=== PATIENT | female | born 1990 | race Caucasian/White ===

== ENCOUNTER → 2016-08-16 | Outpatient (CLI) | payer OTHER ==
[2016-08-16 09:45] LABS: ALBUMIN 3.8 GM/DL (3.2-5.2); ALBUMIN/GLOBULIN RATIO 1.58 (1.00-1.93); ALKALINE PHOSPHATASE 47 U/L (45-117); ALT/SGPT 12 U/L (12-78); ANION GAP 8 MEQ/L (8-16); AST/SGOT 11 U/L (15-37); BILIRUBIN,TOTAL 0.5 MG/DL (0.2-1.0); BLOOD UREA NITROGEN 15 MG/DL (7-18); CALCIUM LEVEL 8.2 MG/DL (8.5-10.1); CARBON DIOXIDE LEVEL 28 MEQ/L (21-32); CHLORIDE LEVEL 106 MEQ/L (98-107); CHOLESTEROL LEVEL 131 MG/DL (<200); CREATININE FOR GFR 0.74 MG/DL (0.55-1.02); GLOMERULAR FILTRATION RATE > 60.0 (>60); GLUCOSE, FASTING 82 MG/DL (70-105); SODIUM LEVEL 142 MEQ/L (136-145); TOTAL PROTEIN 6.2 GM/DL (6.4-8.2); TRIGLYCERIDES LEVEL 52 MG/DL (<150)
== END ==
LOC: M WUC 08:03
PROVIDERS: ATTEND Nurse Practitioner Family
DX: Z13.89 Encounter for screening for other disorder (principal); F41.8 Other specified anxiety disorders

== ENCOUNTER → 2016-09-14 | Outpatient (CLI) | payer OTHER ==
--- NOTE | 2016-09-14 16:05 | REP ---
Clinical: Pelvic pain. IUD placement. Technique: Transabdominal pelvic ultrasound followed by transvaginal examination for better evaluation of the endometrium and adnexa with color Doppler evaluation of the ovaries. Findings: Bladder is unremarkable and measures 9.3 x 8.8 x 6.0 cm . Normal anteverted uterus measures 9.2 x 3.3 x 4.5 cm . The endometrial complex measures 6.5 mm thickness. No discrete uterine or endometrial abnormalities are appreciated. IUD identified in central satisfactory position. Bilateral ovaries are normal in appearance and vascularity without evidence for torsion. Right ovary measures 2.9 x 2.1 x 2.7 cm with 2.3 cm dominant follicle ; R I = 0.35 . Left ovary measures 3.0 x 1.1 x 2.0 cm ; R I = 0.57 . No pelvic fluid or adnexal mass lesions. Impression: 1. Essentially normal pelvic ultrasound. 2. IUD in satisfactory position. 3. 2.3 cm dominant follicle in the right ovary. The
== END ==
LOC: M WHC 14:19
PROVIDERS: ATTEND Nurse Practitioner Women's Health
DX: R10.2 Pelvic and perineal pain (principal); N83.9 Noninflammatory disorder of ovary, fallopian tube and broad ligament, unspecified; Z30.431 Encounter for routine checking of intrauterine contraceptive device

== ENCOUNTER → 2019-05-28 | Outpatient (CLI) | payer OTHER ==
[2019-05-28 16:02] LABS: FOLLICLE STIMULATING HORMONE 6.7 mIU/mL; LUTEINIZING HORMONE 6.2 mIU/mL
== END ==
LOC: M LAB 14:30
PROVIDERS: ATTEND Dermatology
DX: L68.0 Hirsutism (principal)

== ENCOUNTER → 2019-12-18 | Outpatient (REF) | payer OTHER ==
[2019-12-18 17:03] LABS: BASO # 0.1 10^3/uL (0.0-0.2); EOS % 0.6 % (0.0-3.0); HEMATOCRIT 42.6 % (36.0-47.0); HEMOGLOBIN 14.3 g/dl (12.0-15.5); LYMPH # 0.8 10^3/uL (1.5-5.0); LYMPH % 13.6 % (24.0-44.0); MEAN CORPUSCULAR HEMOGLOBIN 32.9 pg (27.0-33.0); MEAN CORPUSCULAR HGB CONC 33.6 g/dl (32.0-36.5); MEAN CORPUSCULAR VOLUME 98.2 fl (80.0-96.0); MONO # 0.7 10^3/uL (0.0-0.8); MONO % 11.8 % (0.0-5.0); NEUTROPHILS # 4.5 10^3/uL (1.5-8.5); NEUTROPHILS % 72.8 % (36.0-66.0); PLATELET COUNT, AUTOMATED 231 10^3/uL (150-450); RED BLOOD COUNT 4.34 10^6/uL (4.00-5.40); WHITE BLOOD COUNT 6.2 10^3/uL (4.0-10.0)
[2019-12-18 17:10] LABS: ALBUMIN 3.8 GM/DL (3.2-5.2); ALT/SGPT 60 U/L (12-78); BILIRUBIN,TOTAL 1.3 MG/DL (0.2-1.0); BLOOD UREA NITROGEN 11 MG/DL (7-18); CARBON DIOXIDE LEVEL 29 MEQ/L (21-32); CHLORIDE LEVEL 105 MEQ/L (98-107); CHOLESTEROL LEVEL 158 MG/DL (<200); CHOLESTEROL RISK RATIO 1.533 (<5); CREATININE FOR GFR 0.78 MG/DL (0.55-1.30); FREE T4 1.01 NG/DL (0.76-1.46); GLOMERULAR FILTRATION RATE > 60.0 (>60); GLUCOSE, FASTING 94 MG/DL (70-100); HDL CHOLESTEROL 103 MG/DL (>40); LDL CHOLESTEROL 45 MG/DL (<100); NON-HDL-C 55 MG/DL; POTASSIUM SERUM 4.1 MEQ/L (3.5-5.1); SODIUM LEVEL 139 MEQ/L (136-145); THYROID STIMULATING HORMONE 0.538 uIU/ML (0.358-3.740); TOTAL PROTEIN 6.5 GM/DL (6.4-8.2); TRIGLYCERIDES LEVEL 52 MG/DL (<150)
[2019-12-18 17:11] LABS: TOTAL 25(OH) VITAMIN D 42.6 NG/ML (30.0-100.0)
[2019-12-18 17:15] LABS: HEMOGLOBIN A1c 4.1 %
== END ==
LOC: M LAB REF 16:13
PROVIDERS: ATTEND Nurse Practitioner Adult Health
DX: Z00.01 Encounter for general adult medical examination with abnormal findings (principal)

== ENCOUNTER 2020-02-14 11:19 | Emergency (ER) | payer OTHER ==
[~2020-02-14] VITALS: Ht 165.1 cm; Wt 78.5 kg
[2020-02-14] MEDS ORDERED: ESCI20TA (11:37)
[2020-02-14] MEDS ORDERED: NS 1,000 ML IV ONE (12:30)
[2020-02-14 12:33] LABS: HEMATOCRIT 44.1 % (36.0-47.0); HEMOGLOBIN 14.7 g/dl (12.0-15.5); MEAN CORPUSCULAR HEMOGLOBIN 32.5 pg (27.0-33.0); MEAN CORPUSCULAR HGB CONC 33.3 g/dl (32.0-36.5); MEAN CORPUSCULAR VOLUME 97.6 fl (80.0-96.0); RED BLOOD COUNT 4.52 10^6/uL (4.00-5.40); WHITE BLOOD COUNT 6.4 10^3/uL (4.0-10.0)
[2020-02-14 12:53] LABS: ALT/SGPT 27 U/L (12-78); BILIRUBIN,TOTAL 0.5 MG/DL (0.2-1.0); BLOOD UREA NITROGEN 12 MG/DL (7-18); CALCIUM LEVEL 8.4 MG/DL (8.5-10.1); CARBON DIOXIDE LEVEL 19 MEQ/L (21-32); CHLORIDE LEVEL 109 MEQ/L (98-107); CREATININE FOR GFR 0.69 MG/DL (0.55-1.30); GLOMERULAR FILTRATION RATE > 60.0 (>60); GLUCOSE, FASTING 87 MG/DL (70-100); MAGNESIUM LEVEL 2.2 MG/DL (1.8-2.4); POTASSIUM SERUM 3.7 MEQ/L (3.5-5.1); SODIUM LEVEL 141 MEQ/L (136-145); TOTAL PROTEIN 6.7 GM/DL (6.4-8.2)
[2020-02-14 12:55] LABS: CK-MB VALUE MASS < 1.0 NG/ML (<3.6); CPK CREATINE PHOSPHOKINASE 134 U/L (26-192); HCG, SERUM QUALITATIVE NEGATIVE (NEGATIVE); MB/CK RELATIVE INDEX 0.75 (< OR =4); TROPONIN I < 0.02 NG/ML (< 0.10)
[2020-02-14 14:35] VITALS: BP 98/51
--- NOTE | 2020-02-27 14:31 | ECGEPIP ---
[facility] - ED Test Date: 2020-02-14 Pat Name: AJYY LEONARDO Department: Room: - Gender: Female Senior Java Data Architect: rowena : 1990 Requested By: Kathleen Rivera Order Number: [id number] Reading MD: Kathleen Rivera Measurements Intervals [place] Rate: 73 P: -40 TX: 165 QRS: 9 QRSD: 101 T: -27 QT: 433 QTc: 480 Interpretive Statements SINUS RHYTHM POSSIBLE RIGHT VENTRICULAR CONDUCTION DELAY NONSPECIFIC ST & T-WAVE ABNORMALITY BORDERLINE ECG SEE SCANNED DOWNTIME REPORT
== END 2020-02-14 14:37 | disposition home or self-care (01) ==
LOC: M ED 11:19 → EDBD 11:19 → M ED 14:37
DX: R55 Syncope and collapse (principal); F33.9 Major depressive disorder, recurrent, unspecified; I45.19 Other right bundle-branch block; R94.31 Abnormal electrocardiogram [ECG] [EKG]; E74.21 Galactosemia; F17.290 Nicotine dependence, other tobacco product, uncomplicated; Z79.899 Other long term (current) drug therapy; Z97.5 Presence of (intrauterine) contraceptive device

== ENCOUNTER → 2020-07-07 | Outpatient (CLI) | payer SELFPAY ==
[~2020-07-07] MED LIST: ESCI20TA16
== END ==
LOC: M LABSMTC 10:10
PROVIDERS: ATTEND Pediatrics
DX: Z20.822 Contact with and (suspected) exposure to COVID-19 (principal)